=== PATIENT | male | born 1980 | race Caucasian/White ===

== ENCOUNTER 2016-10-18 17:43 | Emergency (ER) | payer OTHER ==
[2016-10-18 18:06] VITALS: BP 124/62; PULSE 78; RESP 18; TEMP 98; O2SAT 97
--- NOTE | 2016-10-18 19:18 | UCPHY ---
H & P Time Seen by Provider: 10/18/16 19:05 Patient Type: New HPI/ROS: 36-year-old male presents complaining of twisted his ankle while hiking, has noted marked swelling but is able to walk on it without much difficulty Review of systems General no fever no chills no weakness HEENT no eye pain no eye discharge. No eye redness, no sore throat Respiratory no cough, no shortness of breath Cardiac no chest pain, no peripheral edema GI no abdominal pain, no diarrhea, no constipation, no nausea, no vomiting no flank pain, no hematuria, no dysuria Musculoskeletal no myalgias, positive joint pain Heme no easy bruising, no easy bleeding Endo no polyuria, no polydipsia Skin no rashes, no pruritus Neuro no syncope, no dizziness, no headaches Psych is no suicidal ideation, no homicidal ideation Past Medical/Surgical History: Hypertension Social History: Alcohol socially, denies drug use Smoking Status: Never smoked Physical Exam: 36-year-old male alert and oriented no acute distress nontoxic appearance, afebrile Alert and oriented in no acute distress nontoxic appearance, afebrile Atraumatic normocephalic Neck no JVD Lungs clear to auscultation, no respiratory distress Heart regular rate and rhythm Extremities no cyanosis clubbing edema Except right ankle positive ecchymosis positive swelling, positive tenderness to lateral malleolus, no instability good capillary refill no sensory deficit Able to bear weight Constitutional: Initial Vital Signs Temperature (C) 36.6 C 10/18/16 18:04 Heart Rate 78 10/18/16 18:04 Respiratory Rate 18 10/18/16 18:04 Blood Pressure 124/62 H 10/18/16 18:04 O2 Sat (%) 97 10/18/16 18:04 O2 Delivery Mode Room Air Allergies/Adverse Reactions: No Known Allergies Allergy (Unverified 10/18/16 18:02) Home Medications: Medication Instructions Recorded Hydrochlorothiazide 10/18/16 Medical Decision Making - Diagnostics Imaging: Right ankle x-ray very small avulsion fracture at distal fibular tip between talus and fibula ED Course/Re-evaluation: Patient seen and evaluated for right ankle injury Differential diagnosis considered Ankle sprain, ankle fracture Impression Minute lateral malleolus/distal fibular avulsion fracture Plan CAM boot, crutches Follow up with Ortho and/or Podiatry Departure - Departure Disposition: Home, Routine, Self-Care Clinical Impression: Right ankle sprain, Avulsion fracture of distal end of fibula Condition: Good Instructions: Ankle Sprain (ED), Ankle Stirrup Splint (ED) Referrals: CYNTHIA SHELBY MD [Other] - As per Instructions [facility] [Provider Group] - As per Instructions - PQRS PQRS Measurement: na
== END 2016-10-18 19:33 | disposition home or self-care (01) ==
LOC: CED 17:43
DX: S92.151A Displaced avulsion fracture (chip fracture) of right talus, initial encounter for closed fracture (principal); S93.401A Sprain of unspecified ligament of right ankle, initial encounter; I10 Essential (primary) hypertension; Y93.01 Activity, walking, marching and hiking
CPT/HCPCS: 73610-PO; G0463-PO; L4350

== ENCOUNTER 2016-12-15 14:11 | Emergency (ER) | payer OTHER ==
--- NOTE | 2016-12-15 14:18 | CPEKG ---
Heart Rate: 91 RR Interval: 659 P-R Interval: 124 QRSD Interval: 106 QT Interval: 348 QTC Interval: 429 P [place]: 8 QRS [place]: 82 T Wave [place]: -9 EKG Severity - BORDERLINE ECG - EKG Impression: SINUS RHYTHM EKG Impression: BORDERLINE T ABNORMALITIES, INFERIOR LEADS Electronically Signed By: Dean Davila 15-Dec-2016 14:37:34
[2016-12-15 14:25] VITALS: RESP 18; TEMP 96
[2016-12-15 14:29] LABS: % IMMATURE GRANULYOCYTES 0.2 % (0.0-1.1); ABSOLUTE IMMATURE GRANULOCYTES 0.01 10^3/uL (0.00-0.10); ADD DIFF? NO; ADD MORPH? NO; ADD SCAN? NO; ATYPICAL LYMPHOCYTE FLAG 10 (0-99); FRAGMENT RBC FLAG 0 (0-99); HEMATOCRIT 46.2 % (40.0-51.0); HEMOGLOBIN 16.6 g/dL (13.7-17.5); LEFT SHIFT FLG 0 (0-99); LIPEMIA HEMOLYSIS FLAG 90 (0-99); MEAN CELL HEMOGLOBIN 31.7 pg (27.9-34.1); MEAN CELL HEMOGLOBIN CONCENTR. 35.9 g/dL (32.4-36.7); MEAN CELL VOLUME 88.3 fL (81.5-99.8); MEAN PLATELET VOLUME 10.5 fL (8.7-11.7); PLATELET CLUMPS FLAG 0 (0-99); PLATELET COUNT 230 10^3/uL (150-400); RED BLOOD CELL COUNT 5.23 10^6/uL (4.40-6.38); RED CELL DISTRIBUTION WIDTH 12.5 % (11.5-15.2)
[2016-12-15 14:41] LABS: ALANINE AMINOTRANSFERASE 64 IU/L (21-72); ALBUMIN 4.8 g/dL (3.5-5.0); ALKALINE PHOSPHATASE 72 IU/L (38-126); ANION GAP 20 mEq/L (8-16); ASPARTATE AMINOTRANSFERASE 61 IU/L (17-59); BILIRUBIN,TOTAL 1.4 mg/dL (0.1-1.4); CALCIUM 9.8 mg/dL (8.5-10.4); CARBON DIOXIDE 22 mEq/l (22-31); CHLORIDE 101 mEq/L (97-110); CREATININE 0.9 mg/dL (0.7-1.3); GLOMERULAR FILTRATION RATE > 60; GLUCOSE 104 mg/dL (70-100); POTASSIUM 3.4 mEq/L (3.5-5.2); SODIUM 143 mEq/L (134-144); TOTAL PROTEIN 8.8 g/dL (6.3-8.2)
--- NOTE | 2016-12-15 14:51 | EDPHY ---
H & P Smoking Status: Never smoked HPI/ROS: Chief complaint. Shortness of breath and rapid heart rate HPI. 36-year-old male has had some shortness of breath with exertion and rapid heart rate the last 2 days. He has not checked his pulse. He is okay today. He notes shortness of breath with exertion and when he tenses his muscles up. No chest discomfort. Similar symptoms previously. Recent cardiac workup at [facility] which showed dilated right ventricle on echocardiogram. There is some discussion could the patient have a restrictive cardiomyopathy. His only other medical history is hypertension. No fever cough. No unusual leg pain or swelling ROS Constitutional. no fever/chills, no weakness Eyes. no problems with vision ENT. no sore throat, no nasal drainage Cardiovascular. No chest pain but rapid heart rate Respiratory. Shortness of breath with exertion but no cough Abdominal. no abdominal pain, no nausea/vomiting, no diarrhea . no problems urinating MS. no calf pain/swelling, no neck/back pain, no joint pain Skin. no rash Lymph. no swollen glands Neuro. no headache, no dizziness, no difficulty walking or with speech (Dean Davila) Past Medical/Surgical History: Hypertension and recent cardiac workup (Dean Davila) Social History: Single, nonsmoker, no alcohol (Dean Davila) Physical Exam: General Appearance: Alert well-developed male mild distress vital signs are stable Eyes: Pupils equal and round no pallor or injection. ENT, Mouth: Mucous membranes are moist. Respiratory: There are no retractions, lungs are clear to auscultation. Cardiovascular: Regular rate and rhythm. Gastrointestinal: Abdomen is soft and nontender, no masses, bowel sounds normal. Neurological: Awake and alert, sensory and motor exams grossly normal. Skin: Warm and dry, no rashes. Musculoskeletal: Neck is supple nontender. Extremities symmetrical, full range of motion. Psychiatric: Patient is oriented X 3, there is no agitation. (Dean Davila) Constitutional: Initial Vital Signs Temperature (C) 35.5 C L 12/15/16 14:11 Heart Rate 81 12/15/16 14:11 Respiratory Rate 18 12/15/16 14:11 Blood Pressure 157/89 H 12/15/16 14:11 O2 Sat (%) 96 12/15/16 14:11 O2 Delivery Mode Room Air Allergies/Adverse Reactions: No Known Allergies Allergy (Unverified 03/20/17 18:02) Home Medications: Medication Instructions Recorded Hydrochlorothiazide 10/18/16 Medical Decision Making - Diagnostics EKG Interpretation: EKG interpreted by me shows normal sinus rhythm with normal interval and axis. QRS is normal. There is no significant ST elevation or depression. There is no arrhythmia. There are inverted T-waves in leads 3 and AVF. Heart rate is 91 No previous EKGs in our system the or some (Dean Davila) Imaging Results: Imaging Impressions Chest X-Ray 12/15/16 14:23 Impression: No source for chest pain identified. Chest x-ray interpreted by me as normal (Dean Davila) Procedures: IV normal saline, monitor (Dean Davila) ED Course/Re-evaluation: This patient was signed over to me by Dr. Davila at 3:00 p.m. with some labs pending. By 3:20 p.m. his labs have returned with normal D-dimer troponin, chemistries and CBC. 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 He admits he may have been slightly dehydrated yesterday. He did't feel an erratic heartbeat - simply a faster rate than usual . No significant lightheadedness during these episodes. On his EKG today he has borderline inferior T-wave abnormalities with no previous for comparison. Have a call out to Dr. 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 I spoke with Dr. Saxena-his health spa manager at [facility] [employer] he recalls this patient and was able to pull up his records and noted the only abnormal finding on his workup on echoes that he had a slightly enlarged Right atria. Possibilities in the differential diagnosis after his 1st visit would be a abnormal pulmonary vein or a episodic constrictive cardiomyopathy which she thinks is very unlikely. She relates that his prior EKG has T abnormalities in 3 and AVF-inverted Ts as well. Florence reassured by this and Dr. Saxena does not feel the patient warrants any further workup at this time and can simply follow up with his previously scheduled routine follow up with Cardiology at [facility]. No change in the management plan for this patient except to increase fluid intake prior to exertion. (Patrice Valdez) Care Turn Over: Dr. Valdez at 3:00 p.m. (Dean Davila) - Data Points Laboratory Results: Laboratory Results 12/15/16 14:15 12/15/16 14:15 12/15/16 12/15/16 12/15/16 14:15 14:15 14:15 WBC RBC Hgb Hct MCV MCH MCHC RDW Plt Count MPV Neut % (Auto) Lymph % (Auto) [place] % (Auto) Eos % (Auto) Baso % (Auto) Nucleat RBC Rel Count Absolute Neuts (auto) Absolute Lymphs (auto) Absolute Monos (auto) Absolute Eos (auto) Absolute Basos (auto) Absolute Nucleated RBC Immature Gran % Immature Gran # D-Dimer < 0.27 ug/mLFEU ug/mLFEU (0.00-0.50) Sodium 143 mEq/L mEq/L (134-144) Potassium 3.4 mEq/L L mEq/L (3.5-5.2) Chloride 101 mEq/L mEq/L (97-110) Carbon Dioxide 22 mEq/l mEq/l (22-31) Anion Gap 20 mEq/L H mEq/L (8-16) BUN 13 mg/dL mg/dL (7-23) Creatinine 0.9 mg/dL mg/dL (0.7-1.3) Estimated GFR > 60 Glucose 104 mg/dL H mg/dL (70-100) Calcium 9.8 mg/dL mg/dL (8.5-10.4) Total Bilirubin 1.4 mg/dL mg/dL (0.1-1.4) AST 61 IU/L H IU/L (17-59) ALT 64 IU/L IU/L (21-72) Alkaline Phosphatase 72 IU/L IU/L (38-126) Troponin I < 0.012 ng/mL ng/mL (0-0.034) NT-Pro-B Natriuret Pep < 11 pg/mL pg/mL (0-125) Total Protein 8.8 g/dL H g/dL (6.3-8.2) Albumin 4.8 g/dL g/dL (3.5-5.0) 12/15/16 14:15 WBC 5.65 10^3/uL 10^3/uL (3.80-9.50) RBC 5.23 10^6/uL 10^6/uL (4.40-6.38) Hgb 16.6 g/dL g/dL (13.7-17.5) Hct 46.2 % % (40.0-51.0) MCV 88.3 fL fL (81.5-99.8) MCH 31.7 pg pg (27.9-34.1) MCHC 35.9 g/dL g/dL (32.4-36.7) RDW 12.5 % % (11.5-15.2) Plt Count 230 10^3/uL 10^3/uL (150-400) MPV 10.5 fL fL (8.7-11.7) Neut % (Auto) 45.3 % % (39.3-74.2) Lymph % (Auto) 43.7 % % (15.0-45.0) [place] % (Auto) 8.7 % % (4.5-13.0) Eos % (Auto) 1.4 % % (0.6-7.6) Baso % (Auto) 0.7 % % (0.3-1.7) Nucleat RBC Rel Count 0.0 % % (0.0-0.2) Absolute Neuts (auto) 2.56 10^3/uL 10^3/uL (1.70-6.50) Absolute Lymphs (auto) 2.47 10^3/uL 10^3/uL (1.00-3.00) Absolute Monos (auto) 0.49 10^3/uL 10^3/uL (0.30-0.80) Absolute Eos (auto) 0.08 10^3/uL 10^3/uL (0.03-0.40) Absolute Basos (auto) 0.04 10^3/uL 10^3/uL (0.02-0.10) Absolute Nucleated RBC 0.00 10^3/uL 10^3/uL (0-0.01) Immature Gran % 0.2 % % (0.0-1.1) Immature Gran # 0.01 10^3/uL 10^3/uL (0.00-0.10) D-Dimer Sodium Potassium Chloride Carbon Dioxide Anion Gap BUN Creatinine Estimated GFR Glucose Calcium Total Bilirubin AST ALT Alkaline Phosphatase Troponin I NT-Pro-B Natriuret Pep Total Protein Albumin Departure - Departure Disposition: Home, Routine, Self-Care Clinical Impression: Dyspnea Qualifiers: Dyspnea type: shortness of breath Qualified Code(s): R06.02 - Shortness of breath Condition: Good Instructions: Dyspnea (ED) Additional Instructions: Diagnosis: Dyspnea-shortness of breath I discussed your case with Dr. Saxena-your health spa manager, your EKG today appears unchanged from your EKG at [facility] by her description. Also your labs today are normal. Plan: No change in medication. Stay hydrated. Follow up with your routine scheduled time with Dr. Saxena. Return to the emergency department for any significant worsening despite the plan
[2016-12-15 14:52] LABS: TROPONIN I < 0.012 ng/mL (0-0.034)
[2016-12-15 18:11] VITALS: BP 138/79; PULSE 75; O2SAT 97
== END 2016-12-15 16:03 | disposition home or self-care (01) ==
LOC: CED 14:11
DX: R06.02 Shortness of breath (principal); I10 Essential (primary) hypertension
CPT/HCPCS: 71020-PO; 80053-PO; 83880-PO; 84484-PO; 85025-PO; 85378-PO